=== PATIENT | male | born 1995 | race Caucasian/White ===

== ENCOUNTER 2023-02-25 18:49 | Emergency (ER) | payer SELFPAY ==
[2023-02-25] MEDS ORDERED: Ketorolac Tromethamine 30 MG/ML VIAL ONE (20:35)
== END 2023-02-25 20:55 | disposition home or self-care (01) ==
LOC: ERS 18:49
DX: S43.121A Dislocation of right acromioclavicular joint, 100%-200% displacement, initial encounter (principal); W13.0XXA Fall from, out of or through balcony, initial encounter
CPT/HCPCS: 96372; J1885

== ENCOUNTER 2024-05-14 00:41 | Emergency (ER) | payer SELFPAY | END 2024-05-14 03:49 | disposition home or self-care (01) | LOC: ERS 00:41 | DX: S02.2XXA Fracture of nasal bones, initial encounter for closed fracture (principal); S30.810A Abrasion of lower back and pelvis, initial encounter; H57.89 Other specified disorders of eye and adnexa; Y09 Assault by unspecified means | CPT/HCPCS: 70450; 70486; 72125 ==